=== PATIENT | male | born 1960 | race Caucasian/White ===

== ENCOUNTER → 2017-02-13 | Outpatient (CLI) | payer BC, MEDICARE ==
[~2017-02-13] MED LIST: B-121000 MCG PO; GLUCOSAMINE CHO1 CA1 PO; LIPOFEN150 MG PO; LORTAB 5/500 501 TAB PO; MELOXICAM15 MG PO; METFORMIN500 MG PO; OMEPRAZOLE40 MG PO; PHENERGAN 25MG.25 M1 PO; PRAVASTATIN SOD80 MG PO; PRINIVIL5 MG PO; PROAIR HFA0.09 MG/AC IH; SYMBICORT 10.10.2 M1 IH
--- NOTE | 2017-02-14 12:29 | RADIOLOGY REPORT PS360 ---
SPECT MYOCARDIAL PERFUSION SCAN, REST AND STRESS: EXERCISE STRESS: [facility] REVIEW QGS EF AND WALL MOTION EVALUATION: QPS - PERFUSION EVALUATION: HISTORY: Chest pain, SOB, Fatigue, HTN, DM, Family Hx PROCEDURE: Rest imaging performed after administration of10.29 millicuries Tc MIBI. Dose administered at12:00 p.m., with imaging thereafter. Stress imaging was then performed following5 minutes 43 seconds of exercise stress. The patient achieved a heart [id number] with projected heart rate of164 . Resting BP148/88 with stress 160/90. At maximum exercise stress,30.4 millicuries Tc MIBI administered at1:55 p.m. with [id number] minutes thereafter. Patient experienced numerous PVCs with exercise and with rest. FINDINGS: Perfusion Evaluation: The single slice spect images as well as the [facility] bull's-eye data summary were reviewed. Wall Motion and Ejection Fraction Evaluation: Gated SPECT review and analysis used to evaluate these features. There is a 53 % left ventricular ejection fraction. There seems to be good wall motion Uniform myocardial activity with both stress and rest IMPRESSION: No scintigraphic evidence of exercise-induced myocardial ischemia however patient had significant PV cc with both exercise and rest and clinical correlation is advised. Specifically in recovery patient had prolonged episodes of trigeminy.
--- NOTE | 2017-02-14 12:29 | RADIOLOGY REPORT PS360 ---
SPECT MYOCARDIAL PERFUSION SCAN, REST AND STRESS: EXERCISE STRESS: [facility] REVIEW QGS EF AND WALL MOTION EVALUATION: QPS - PERFUSION EVALUATION: HISTORY: Chest pain, SOB, Fatigue, HTN, DM, Family Hx PROCEDURE: Rest imaging performed after administration of10.29 millicuries Tc MIBI. Dose administered at12:00 p.m., with imaging thereafter. Stress imaging was then performed following5 minutes 43 seconds of exercise stress. The patient achieved a heart [id number] with projected heart rate of164 . Resting BP148/88 with stress 160/90. At maximum exercise stress,30.4 millicuries Tc MIBI administered at1:55 p.m. with [id number] minutes thereafter. Patient experienced numerous PVCs with exercise and with rest. FINDINGS: Perfusion Evaluation: The single slice spect images as well as the [facility] bull's-eye data summary were reviewed. Wall Motion and Ejection Fraction Evaluation: Gated SPECT review and analysis used to evaluate these features. There is a 53 % left ventricular ejection fraction. There seems to be good wall motion Uniform myocardial activity with both stress and rest IMPRESSION: No scintigraphic evidence of exercise-induced myocardial ischemia however patient had significant PV cc with both exercise and rest and clinical correlation is advised. Specifically in recovery patient had prolonged episodes of trigeminy.
== END ==
LOC: RAD 11:44
DX: I20.9 Angina pectoris, unspecified (principal); I25.10 Atherosclerotic heart disease of native coronary artery without angina pectoris; I11.9 Hypertensive heart disease without heart failure; E11.9 Type 2 diabetes mellitus without complications; E78.5 Hyperlipidemia, unspecified; F41.9 Anxiety disorder, unspecified; R53.83 Other fatigue
CPT/HCPCS: A9502